=== PATIENT | female | born 2000 | race Two or more races ===

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

== ENCOUNTER 2019-09-20 14:34 | Emergency (ER) | payer OTHER ==
[~2019-09-20] VITALS: Ht 160 cm; Wt 81.6 kg
[~2019-09-20 14:34] MED LIST changes: +CEPH500T PO; -CETI10TA22 PO; +CETI10TA24 PO; +ONDA4TAB12 PO
[2019-09-20 15:32] VITALS: BP 144/79
--- NOTE | 2019-09-20 15:48 | PHYS DOC ---
Past Medical History Past Medical History: No Pertinent History (ALBERTO TODD BAND MANAGER) Past Surgical History: No Surgical History (ALBERTO TODD APRN) Alcohol Use: None Drug Use: None (ALBERTO TODD APRN) Adult General Chief Complaint Chief Complaint: SORE THROAT HPI HPI Patient is a 19 year old female who presents with Saturday (having nasal congestion, body aches and cough and fever. She states she's been taking NyQuil and DayQuil and Advil. She last took at feel this morning. She rates her pain an 8 out of 10. (ALBERTO TODD APRN) Review of Systems Review of Systems Constitutional: fever or chills [] HENT: nasal congestion or sore throat [] Respiratory: cough or denies shortness of breath [] Musculoskeletal: Body aches. Denies back pain or joint pain [] All other systems were reviewed and found to be within normal limits, except as documented in this note. (ALBERTO TODD APRN) Current Medications Current Medications Current Medications Medications (Trade) Dose Ordered Sig/Marielena Start Time Stop Time Status Last Admin Dose Admin Acetaminophen (Tylenol) 1,000 mg 1X ONCE 09/20/19 15:45 09/20/19 15:47 DC 09/20/19 15:59 1,000 MG (PARISH HUDDLESTON DO) Allergies Allergies Allergies Coded Allergies Type Severity Reaction Last Updated Verified No Known Drug Allergies 10/05/16 No (PARISH HUDDLESTON DO) Physical Exam Physical Exam Constitutional: Well developed, well nourished, no acute distress, non-toxic appearance. [] HENT: Normocephalic, atraumatic, bilateral external ears normal, oropharynx moist, no oral exudates, nose normal. [] Eyes: PERRLA, EOMI, conjunctiva normal, no discharge. [] Neck: Normal range of motion, no tenderness, supple, no stridor. [] Cardiovascular:Heart rate regular rhythm, no murmur [] Lungs & Thorax: Bilateral breath sounds clear to auscultation [] Abdomen: Bowel sounds normal, soft, no tenderness, no masses, no pulsatile masses. [] Skin: Warm, dry, no erythema, no rash. [] Back: No tenderness, no CVA tenderness. [] Extremities: No tenderness, no cyanosis, no clubbing, ROM intact, no edema. [] Neurologic: Alert and oriented X 3, normal motor function, normal sensory function, no focal deficits noted. [] Psychologic: Affect normal, judgement normal, mood normal. [] (ALBERTO TODD APRN) Current Patient Data Vital Signs Vital Signs Date Time Temp Pulse Resp B/P (MAP) Pulse Ox O2 Delivery O2 Flow Rate FiO2 09/20/19 15:32 101.6 114 16 144/79 (100) 96 Room Air 101.6 (PARISH HUDDLESTON DO) Lab Values Laboratory Tests Test 09/20/19 15:29 Influenza Type A Antigen Negative (NEGATIVE) Influenza Type B Antigen Positive (NEGATIVE) Group A Streptococcus Rapid Negative (NEGATIVE) (PARISH HUDDLESTON DO) Lab Values Laboratory Tests Test 09/20/19 15:29 Influenza Type A Antigen Negative (NEGATIVE) Influenza Type B Antigen Positive (NEGATIVE) (ALBERTO TODD APRN) EKG EKG [] (ALBERTO TODD APRN) Radiology/Procedures Radiology/Procedures [] (ALBERTO TODD APRN) Course & Med Decision Making Course & Med Decision Making Alert and oriented. Speaks in full clear sentences. Skin pink warm and dry. Ambulatory with a steady gait. Lungs are clear to auscultation all lobes. Bilateral tympanic reddened and tender with examination. Abdomen is soft and nontender. Throat is pink without exudates or swelling. Postnasal drip present. Patient denies nausea, vomiting, abdominal pain, diarrhea, chest pain, shortness of air, dizziness, syncope. Influenza B-positive. Strep negative. (ALBERTO TODD APRN) Dragon Disclaimer Dragon Disclaimer This electronic medical record was generated, in whole or in part, using a voice recognition dictation system. (ALBERTO TODD APRN) Departure Departure Impression: Primary Impression: Influenza B Disposition: 01 HOME, SELF-CARE Condition: STABLE Referrals: UNKNOWN PCP NAME (PCP) Patient Instructions: Influenza, Adult Additional Instructions: Drink plenty of fluids. Take Advil or Tylenol to help with her fever and pain. Continue taking [id number] cold medications. Take medication with food and as directed. Scripts Oseltamivir Phosphate (TAMIFLU) 75 Mg Capsule 1 CAP PO BID, #10 CAP Prov: ALBERTO TODD APRN 09/20/19 Attending Signature Attending Signature I have reviewed the PA/THERAPEUTIC STRATEGY LEAD's note and plan of care. I was available for consultation as needed during the patient's visit in the emergency department. I agree with the clinical impression, plan, and disposition. (PARISH HUDDLESTON DO) ALBERTO TODD APRN Sep 20, 2019 15:48 PARISH HUDDLESTON DO Sep 21, 2019 07:56
[2019-09-20] MEDS: ACETAMINOPHEN 500 MG TABLET PO ONE (15:59)
[2019-09-20 16:29] LABS: INFLUENZA A PATIENT NEGATIVE (NEGATIVE)
[2019-09-20 16:33] LABS: INFLUENZA B PATIENT POSITIVE (NEGATIVE)
[2019-09-20] MEDS ORDERED: OSEL75CA PO (16:46)
== END 2019-09-20 17:03 | disposition home or self-care (01) ==
LOC: ER 14:34
DX: J10.1 Influenza due to other identified influenza virus with other respiratory manifestations (principal)
CPT/HCPCS: 87070; 87804; 87880; 99284